=== PATIENT | female | born 1975 | race Caucasian/White ===

== ENCOUNTER → 2018-03-18 | Outpatient (CLI) | payer OTHER | END | disposition home or self-care (01) | LOC: C.LAB1850 16:25 | PROVIDERS: ATTEND Internal Medicine | DX: E03.9 Hypothyroidism, unspecified (principal) ==

== ENCOUNTER 2020-01-01 16:02 | Inpatient (IN) ==
[2020-01-01] MEDS ORDERED: SODIUM CHLORIDE 0.9% 250 ML IV PRN ×2 (16:43→21:47)
[2020-01-01 17:16] LABS: Prothrombin Time 10.7 Seconds (9.0-12.0)
[2020-01-01 17:32] LABS: Pregnancy Test, Serum Negative (Negative)
[2020-01-01] MEDS ORDERED: IOVERSOL 100ml IV PRN (17:56)
--- NOTE | 2020-01-01 18:10 | Emergency Department Note ---
Entered by Randell Franklin acting as a scribe for History of Present Illness General Chief complaint: Abnormal Labs/Diagnostic Testing Stated complaint: LOW RBC AND HEMOGLOBIN Time Seen by Provider: 01/01/20 16:10 Source: stonework supervisor (niece) Limitations: language barrier History of Present Illness Onset (ago): week(s) 1 Location: head Pain Consistency: + intermittent (right rib pain) Maximum Pain Intensity: 0 Quality: + other (tired-feeling ) Exacerbated By: + movement Associated symptoms: + chest pain and + other (lightheaded, feeling more tired, near-syncope, right sided rib pain, fast heart beat, heavy periods) The patient is a 44 year old female who presents to the Emergency Room with complaints of abnormal testing. The patient's niece is translating for the patient at her request. The niece states the patient's friend, Kassidy Davidson, checked the patient's blood today and noticed the patient had a low hemoglobin. The niece states the patient notes she has never been told her blood count was low. The niece notes the patient states she had pain under her ribs on the right sided that has been intermittent. The niece states the patient states she had heavy periods in the last two days. The niece states the patient states she felt lightheaded last week and felt like she was going to pass out. The niece states the patient states she has been more tired lately and gets out of breath with movement. The niece states the patient states she gets a racing heart beat and chest pain with movement. The niece states the patient states she feels fine right now. The niece states the patient denies having a history of bleeding, having black or bloody stools, having family history of bleeding, and having a previous blood transfusion. Pt was offered our translation device but preferred to use her family member. Home Medications Home Medications Medication Instructions Recorded Confirmed Type levothyroxine 88 mcg tablet 88 mcg PO QAM #90 tab 03/06/19 01/01/20 History pantoprazole 20 mg PO QAM 01/01/20 01/01/20 History ferrous gluconate 324 mg PO BID 30 Days #60 tab 01/02/20 Rx Allergies Allergy/AdvReac Type Severity Reaction Status Date / Time No Known Drug Allergies Allergy Verified 01/01/20 16:56 Past Med/Surg History Medical History Benign familial tremor (Acute) Breast cancer screening by mammogram (Acute) Cervical cancer screening (Acute) Diabetes mellitus screening (Acute) Encounter for screening for lipoid disorders (Acute) Neoplasm of uncertain behavior of skin (Acute) Subclinical hypothyroidism (Acute) Family History Other Family history non-contributory Social History Preferred Language: Icelandic Communication Tools: IPad 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 and A total of 10 systems reviewed and were otherwise negative Physical Exam Vital Signs Vital Signs - 24 hr 01/01/20 16:05 01/01/20 17:26 01/01/20 17:30 Temperature 36.3 C L Temperature Source Oral Pulse Rate 83 69 68 Pulse Rate from SpO2 Sensor 69 69 Pulse Rhythm Pulse Strength Respiratory Rate 18 30 H 16 Respiratory Effort / Characteristics Non-Labored Spontaneous Respiratory Depth Normal Respiratory Pattern Regular Blood Pressure 146/76 H 131/78 128/76 Blood Pressure Mean 99 85 91 Blood Pressure Position Sitting Pulse Oximetry 97 93 97 Oxygen Delivery Method Room Air Oxygen Flow Rate Sepsis Recent Fever Within 48 Hours No Sepsis New/Unexplained Change in Mental Status No Sepsis Action Taken by Nursing No Action Required 01/01/20 18:11 01/01/20 18:15 01/01/20 18:22 Temperature 36.5 C Temperature Source Oral Pulse Rate 72 71 69 Pulse Rate from SpO2 Sensor 71 72 Pulse Rhythm Regular Pulse Strength Normal Respiratory Rate 19 17 15 Respiratory Effort / Characteristics Respiratory Depth Respiratory Pattern Blood Pressure 136/83 138/81 136/83 Blood Pressure Mean 101 86 100 Blood Pressure Position Lying Pulse Oximetry 96 98 95 Oxygen Delivery Method Oxygen Flow Rate 0 Sepsis Recent Fever Within 48 Hours Sepsis New/Unexplained Change in Mental Status Sepsis Action Taken by Nursing 01/01/20 18:37 Temperature 36.7 C Temperature Source Oral Pulse Rate 75 Pulse Rate from SpO2 Sensor Pulse Rhythm Regular Pulse Strength Normal Respiratory Rate 22 Respiratory Effort / Characteristics Respiratory Depth Respiratory Pattern Blood Pressure 142/80 H Blood Pressure Mean 100 Blood Pressure Position Lying Pulse Oximetry 97 Oxygen Delivery Method Oxygen Flow Rate 0 Sepsis Recent Fever Within 48 Hours Sepsis New/Unexplained Change in Mental Status Sepsis Action Taken by Nursing GENERAL: alert, well appearing, well nourished, no distress, non-toxic. Pale EYE EXAM: normal conjunctiva, PERRL and EOM's grossly intact OROPHARYNX: no exudate, no erythema, lips, buccal mucosa, and tongue normal and mucous membranes are moist NECK: supple, no nuchal rigidity, no adenopathy, non-tender LUNGS: Clear to auscultation. Normal chest wall mechanics HEART: no murmurs, S1 normal and S2 normal ABDOMEN: abdomen soft, non-tender, normo-active bowel sounds, no masses, no rebound or guarding. BACK: Back is symmetrical on inspection and there is no deformity, no midline tenderness, no CVA tenderness. SKIN: no rashes and no bruising. Pale UPPER EXTREMITIES: upper extremities are grossly normal. FROM, nml pulses b/l. LOWER EXTREMITIES: No pitting edema. FROM, nml pulses b/l. NEURO EXAM: Normal sensorium, cranial nerves II-XII grossly intact, normal speech, no gross weakness of arms, no gross weakness of legs. Course Course 162: The patient was evaluated in room C3, and a complete history and physical examination were performed. 174: Blood consent form signed. Vital signs stable. Patient headed to CT. 1820: Patient is not sexually active. Patient has never had a gynecologic exam. Discussed CT results with patient and family at bedside. 1834: I discussed the patient's case with Dr. Lam. She will evaluate the patient for further management. 1849: Discussed with Dr. Padilla. If patient has heavy menstrual bl eeding or passage of clots, recommends progestin. This information was relayed to hospitalist also. Administered Medications Discontinued Medications Ioversol (Optiray 320 100ml) 95 ml IV ONCE PRN PRN Reason: Interaction Checking Stop: 01/05/20 17:55 Last Admin: 01/01/20 17:56 Dose: 95 ml Documented by: [id number] Levothyroxine Sodium (Synthroid) 88 mcg PO DAILYBB [facility] Stop: 02/01/20 06:29 Last Admin: 01/02/20 06:24 Dose: 88 mcg Documented by: [id number] Pantoprazole Sodium (Protonix) 40 mg PO QAM [facility] Stop: 02/01/20 08:59 Last Admin: 01/02/20 08:23 Dose: 40 mg Documented by: [id number] Critical Care Time Critical Care Time: Yes Total Critical Care Time: 48 I have personally spent 48 minutes of critical care time in the direct management of this patient. This includes bedside care, interpretation of diagnostic studies, and testing, discussion with consultants, patient, and family members, and other required patient management activities. This 48 minutes is in excess of all separately billable procedures. Medical Decision Making Differential Diagnosis Differential Diagnosis includes but is not limited to dehydration, stroke, anemia, hypoglycemia, hyponatremia, hypernatremia, urinary tract infection, pneumonia, bronchitis, sepsis, gastroenteritis, additional abdominal pathology, metabolic abnormalities and infections. Medical Records Attestation: I reviewed the patient's medical records. Home Medications Current Medication List: was personally reviewed by me Laboratory Data Attestation: I reviewed the patient's lab results. Result diagrams: 01/02/20 14:00 01/02/20 03:37 Lab Results 01/01/20 01/01/20 01/01/20 Range/Units 16:52 16:52 16:52 PT 10.7 (9.0-12.0) Seconds INR 1.0 (0.9-1.1) Troponin I 0.058 H* (0-0.045) ng/ml HCG, Qual (Negative) Blood Type O Positive Blood Type Recheck Antibody Screen NEGATIVE Crossmatch See Detail 01/01/20 01/01/20 Range/Units 16:52 17:10 PT (9.0-12.0) Seconds INR (0.9-1.1) Troponin I (0-0.045) ng/ml HCG, Qual Negative (Negative) Blood Type Blood Type Recheck O Positive Antibody Screen Crossmatch Imaging Data Radiologist's Impression: Radiology results as stated below per my review and the radiologist's interpretation: CT abd pelvis IV con only CT DOSE: 813.78 mGycm HISTORY: Pain abd pain, anemia TECHNIQUE: Multiaxial CT images of the abdomen and pelvis were performed following the use of intravenous contrast. A dose lowering technique was utilized adhering to the principles of ALARA. COMPARISON STUDY: None. FINDINGS: Lung bases are clear. Liver spleen and pancreas are unremarkable. A gallstone is present within the gallbladder lumen. Kidneys enhance uniformly the abdominal bowel pattern is nonobstructive. The bladder is markedly enlarged with evidence for multifocal fibroid involvement. Maximum dimension of the bladder transaxially is 15.0 x 10.0 cm. Bladder is moderately displaced and anterior fashion. The pelvic bowel pattern is nonobstructive. IMPRESSION: 1. Enlarged uterus demonstrating multifocal fibroid involvement. 2. Dimensions are 15.0 x 10.0 cm. 3. The remainder the study is unremarkable. ACT 112: Negative or not required by law. The above report was generated using voice recognition software. It may contain grammatical, syntax or spelling errors. Electronically signed by: Shane Tom M.D. 01/01/2020 6:08 PM ECG Data Attestation: I personally reviewed and interpreted this ECG as follows: Indication: + abdominal pain Rate (beats per minute): 70 Rhythm: + normal sinus ECG Intervals/blocks: + Normal QRS, + Normal QT, + Normal AR and + Normal QT-c ECG Entriken: + Normal ECG Findings: + Other (Bifasic appearing T wave in V2) Blood Pressure Blood Pressure Findings: Elevated blood pressure Blood Pressure Disposition: further management by hospitalist CAROLYNN Narrative Continuous Cardiac Monitoring: An order was placed for continuous cardiac monitoring. The monitor shows a rate of 72 with a normal sinus rhythm. Pt here with symptomatic anemia. No prior hx of anemia. No sx to suggest gi or gu source. Given mild abd pain, pt sent for CT which revealed fibroid uterus. Given heavier than normal menstrual bleeding, I feel this is likely the source. Given lack of prior sexual hx, I do not suspect PID or other acute sous chef pa thology. Possible now approaching menopause and fluctating hormonal levels are contributing to heavier bleeding in the presence of fibroids. Pt VS stable while at rest. Pt in agreement with plan for transfusion. I do not suspect acs despite elevatedt troponin. I feel this is likely due to demand from anemia. No ectopy or dysrhythmia noted on tele. Impression & Plan Anemia, Elevated troponin, Dyspnea, Fatigue, Menorrhagia Discharge Plan Visit Data *Final* Discharge Date/Time: 01/01/20 21:22 Chief Complaint: Abnormal Labs/Diagnostic Testing Stated Complaint: LOW RBC AND HEMOGLOBIN ED Provider: Suzette Ross Discharge Problem: Anemia, Elevated troponin, Dyspnea, Fatigue, Menorrhagia Patient Disposition: Admitted As Inpatient Discharge Instructions Interventions: ED Discharge Assessment Last Done: 01/01/20 21:22 Discharge Problem: Anemia Qualifiers: Anemia type: unspecified type Qualified Code(s): D64.9 - Anemia, unspecified Dyspnea Qualifiers: Dyspnea type: unspecified Qualified Code(s): R06.00 - Dyspnea, unspecified Fatigue Qualifiers: Fatigue type: unspecified Qualified Code(s): R53.83 - Other fatigue Menorrhagia Qualifiers: Menorrhagia type: with regular cycle Qualified Code(s): N92.0 - Excessive and frequent menstruation with regular cycle The scribe's documentation has been prepared under my direction and personally reviewed by me in its entirety. I confirm that the note above accurately reflects all work, treatment, procedures, and medical decision making performed by me.
--- NOTE | 2020-01-01 20:26 | History & Physical Report ---
Date of Service January 01, 2020 Assessment & Plan (1) Severe anemia: Admit to PCU on telemetry. Vital signs every 4 hours. Patient has menometrorrhagia and she chronically lost blood due to fibroid uterus and dysfunctional uterine bleeding. Patient is not on any kind of contraceptive pills. Patient refused progesterone stating that this will make her local fat. Patient accepted to be seen by INTERACTIVE MEDIA MARKETING STRATEGIST in the morning. Transvaginal sonogram pending. DVT prophylaxis SCDs and teds. Patient was started on 2 units of blood which she consented. Check H&H every 8 hours. Patient is still on her. Continue monitoring for blood loss measuring pads/number and weight. Patient is a full code. Present on Admission?: Yes (2) Elevated troponin: Appears to be due to demand ischemia. Patient's EKG is normal. I will continue trending down troponin x3 with EKG. TTE pending Present on Admission?: Yes (3) Dyspnea: Symptomatic due to severe anemia. Continue blood transfusion Present on Admission?: Yes (4) Menometrorrhagia: As the above. Patient referred to INTERACTIVE MEDIA MARKETING STRATEGIST. Refused progesterone. Present on Admission?: Yes (5) Fibroid uterus: This was discussed with patient. She will possibly need hysterectomy. Present on Admission?: Yes (6) Subclinical hypothyroidism: Elevated TSH but free T4 normal, continue home dose of levothyroxine 88 MCG's p.o. every morning. Present on Admission?: Yes History of Present Illness Chief Complaint: Menometrorrhagia and severe anemia Primary Care Provider: Rosemarie Whaley MD The patient is a 44 years old female with past medical history of subclinical hypothyroidism who was brought to the emergency room by her family since she does not speak any Citizen [place] with the complaint that patient is severely pale and short of breath in the past several days. Patient reports not being ever sexually active and not having ever pelvic exam. Patient reports that her menstrual.'s are heavy and frequent and they occur irregularly. Patient is at this point on her menstrual and she reports of her period being moderately heavy. Patient reports changing 3 soaked pads since this morning. Patient denies fever, chills, chest pain, shortness of breath, abdominal pain, frequency, urgency. Labs are reviewed: WBC is 5.32, hemoglobin 6.7, hematocrit 26.0, platelets 460, PT 10.7, INR 1, sodium 138, potassium 3.7, chloride 106, BUN 14, creatinine 0.57, GFR 111.2, hemoglobin A1c 5.3, calcium 9.3, iron 9, TIBC 586, ferritin 1.1, AST 6, ALT 16, troponin 0 0.058, total protein 8, albumin 4.1, globulin 3.9, triglycerides 35, cholesterol 129, LDL 62, VLDL 7, HDL 60, cholesterol 2, TSH 5.610, free T4 0.99 beta-hCG negative. CT abdomen and pelvis with IV contrast only shows enlarged uterus demonstrated focal fibroid involvement. Dimensions are 15 x 10 cm. The reminder of the study is unremarkable. Decision was made to admit patient to PCU on telemetry for severe symptomatic anemia most probably due to fibroid uterus and chronic DUB. Allergies Allergy/AdvReac Type Severity Reaction Status Date / Time No Known Drug Allergies Allergy Verified 01/01/20 16:56 Home Medications Home Medications Medication Instructions Recorded Confirmed Type levothyroxine 88 mcg tablet 88 mcg PO QAM #90 tab 03/06/19 01/01/20 History pantoprazole 20 mg PO QAM 01/01/20 01/01/20 History Past Med/Surg History Medical History Benign familial tremor (Acute) Breast cancer screening by mammogram (Acute) Cervical cancer screening (Acute) Diabetes mellitus screening (Acute) Encounter for screening for lipoid disorders (Acute) Neoplasm of uncertain behavior of skin (Acute) Subclinical hypothyroidism (Acute) Family History Other Family history non-contributory Social History Preferred Language: Citizen [place] Feels Safe at Home: Yes Smoking Status: Never smoker Review of Systems Review of Systems: All systems reviewed & are unremarkable except as noted in HPI & below Physical Exam Constitutional: WD/WN, vitals as above well developed and + obese Eyes: normal visual soto by confrontation Pale conjunctiva ENMT: external ear and nose normal, oropharynx normal Neck: trachea midline, no thyromegaly Respiratory: normal respiratory effort, lungs clear to auscultation Cardiovascular: RRR, no murmur, no edema Gastrointestinal (Abdomen): normal bowel sounds, soft, nontender, no hepatosplenomegaly Musculoskeletal: no cyanosis or clubbing, extremities motor strength 5/5 Skin: no rashes, warm and dry Neurologic: patellar DTR's 2+ bilat, sensation intact Psychiatric: A+Ox3, euthymic affect Lymphatic: no cervical or axillary lymphadenopathy Results & Data Vital Signs (Past 12 Hours) Vital Signs Temp Pulse Resp BP Pulse Ox 01/01/20 19:15 36.7 C 71 18 139/86 100 01/01/20 19:00 36.8 C 67 16 134/83 99 01/01/20 18:37 36.7 C 75 22 142/80 H 97 01/01/20 18:22 36.5 C 69 15 136/83 95 01/01/20 18:15 71 17 138/81 98 01/01/20 18:11 72 19 136/83 96 01/01/20 17:30 68 16 128/76 97 01/01/20 17:26 69 30 H 131/78 93 01/01/20 16:05 36.3 C L 83 18 146/76 H 97 Code Status & VTE Plan Code Status Full code VTE Prophylaxis Plan VTE Prophylaxis will be ordered: No PG Care Time/CCT Total # of Minutes Spent Total Time Spent with Patient: Total time spent is greater than 50% in coordination of care (as documented) at patient's floor/unit and/or counseling patient: Coding Level of Care Code 02221 Initial Inpt Care Lvl 3 Diagnoses Severe anemia D64.9 Elevated troponin R79.89 Dyspnea R06.00 Dyspnea type: unspecified Menometrorrhagia N92.1 Fibroid uterus D25.9 Subclinical hypothyroidism E03.9 (1) Dyspnea Dyspnea type: unspecified Qualified Code(s): R06.00 - Dyspnea, unspecified
[2020-01-01] MEDS ORDERED: ACETAMINOPHEN 325 MG TAB PO PRN (21:47)
[2020-01-01] MEDS ORDERED: ALUMINUM/MAGNESIUM SUSP 30 ML UDC PO PRN (21:47)
[2020-01-01] MEDS ORDERED: MAGNESIUM HYDROXIDE SUSP 30 ML UDC PO PRN (21:47)
[2020-01-01] MEDS ORDERED: POLYETHYLENE (MIRALAX) 17 GM PACK PO PRN (21:47)
[2020-01-01] MEDS ORDERED: ONDANSETRON INJ 2 MG/ML 2 ML VIAL IV PRN (21:47)
[2020-01-01 22:13] LABS: Mean Corpuscular Hgb Conc 26.9 g/dL (32-36); Mean Corpuscular Volume 59.5 fL (80-100); Mean Platelet Volume 8.5 fL (7.4-10.4); Platelet Count 384 K/uL (130-400); RDW Coefficient of Variation 21.5 % (11.5-14.5); RDW Standard Deviation 46.4 fL (36.4-46.3); Red Blood Count 4.37 M/uL (4.2-5.4)
[2020-01-01 22:44] LABS: Anisocytosis Present; Basophils # (auto) 0.04 K/uL (0-0.2); Basophils % (auto) 0.7 %; Eosinophils # (auto) 0.11 K/uL (0-0.5); Hypochromasia Present; Immature Granulocytes # (auto) 0.01 K/uL (0.00-0.02); Immature Granulocytes % (auto) 0.2 %; Lymphocytes # (auto) 1.55 K/uL (1.2-3.4); Lymphocytes % (auto) 27.7 %; Microcytosis Present; Monocytes # (auto) 0.47 K/uL (0.11-0.59); Monocytes % (auto) 8.4 %; Neutrophils # (auto) 3.42 K/uL (1.4-6.5); Tear Drop Cells 1+
--- NOTE | 2020-01-01 23:29 | Consultation Report ---
DATE OF ADMISSION: 01/01/2020 REASON FOR CONSULT: Heavy periods and fibroid uterus and anemia. HISTORY OF PRESENT ILLNESS: The patient is a 44-year-old G0, single/virgin Nauruan female who is being admitted by medicine for a severe anemia. She soeaks Nauruan and we have used lamps tester and inspector services for communication. She states her periods have been heavier for the last year. They still come regularly every month and last about 4-5 days. She gets heavy bleeding for 2 days and then it slows down. Her periods started last Sunday on 12/29/2019 and it was heavy for 2 days and now today it slowed down and it is almost gone. She uses 4 pads on the heavy days. Denies passing any clots. On other days, it is much plunket nurse. She denies any pain or cramping with her periods. She denies intermenstrual bleeding, spotting, pelvic pain, discharge or any CLINIC MGR problems. She has never been to a service station operator. She has never been sexually active. On the admission, she was found to have severe anemia with hemoglobin of 6. She was admitted for blood transfusion. During workup, a CT scan was done which showed enlarged fibroid uterus measuring 15 x 10 cm. Details of the fibroids are not notified. Ultrasound has not been done yet. The patient denies any history of fibroids nor any CLINIC MGR problems. She declined progestin therapy earlier offered by medical doctor. She does not seem like needing hormonal therapy since her period light and ending. She is willing to follow up regularly for a routine CLINIC MGR exams and Pap smears. I offered her a pelvic exam today, but she kind of hesitant, she never had exam and we do not have options of different sizes of speculum here. I offered her exam in the office where we have very small speculums for virgin patients. She preferred that and wants to follow up for that. I gave her our address and phone number. I will also contacted my office to follow up and scheduled with her. I recommended her to have a pelvic ultrasound today to visualize the fibroids better. She agrees with that. We discussed that the fibroid tumors are usually benign tumors of the uterus. We will talk about options after the ultrasound as we know more about the sizes and number of fibroids. PAST MEDICAL HISTORY: Hypothyroidism, benign familial tremor. GYNECOLOGIC HISTORY: She has never been sexually active. She was never been . She is G0. She has no history of abnormal Pap smears since she never had a Pap smear before. SOCIAL HISTORY: The patient denies smoking, alcohol or drug use. She is Nauruan speaking. She has a sister, niece and friend that she shared their numbers with us to communicate later for appointments. PHYSICAL EXAMINATION: VITAL SIGNS: Blood pressure is 133/77, pulse is 68, respirations in the 14, and O2 saturations 98% on room air. GENERAL: She is alert, oriented x3, not in acute distress. She denies any heavy bleeding. LABORATORY WORKUP: On admission H&H was 6.05/30, now it is 05/30. Her platelets are 384. Her urine test is negative. PT/INR are normal. IMAGING: She only had abdominal /pelvis CT scan which showed enlarged uterus with multifocal fibroids measuring 15 x [address] of [address] of abdomen and pelvis are normal. ASSESSMENT AND PLAN: The patient is a 44-year-old G0, single/virgin Nauruan speaking female. We used lamps tester and inspector services for communication. She reports history of heavy periods, which sounded like normal per her history. Fibroid tumors noted on CT scan, no history per patient. Fibroid tumors are usually benign muscular tumors of uterus which sometimes can cause heavy periods or pain. ' She does not have much symptoms of fibroids. I recommended her to have a pelvic ultrasound to look at her fibroids in terms of number and sizes and location and then we will discuss what to do in the office. She prefers a pelvic exam in the office where we can choose different size of the speculums. I gave our phone and address and my office will contact her for an appointment and follow up. Thank you for the consultation. JAVON
[2020-01-02 03:58] LABS: Hematocrit (blood only) 27.5 % (37-47); Hemoglobin 7.5 g/dL (12.0-16.0); Mean Corpuscular Hemoglobin 16.7 pg (25-34); Mean Corpuscular Hgb Conc 27.3 g/dL (32-36); Mean Corpuscular Volume 61.2 fL (80-100); Mean Platelet Volume 8.4 fL (7.4-10.4); Platelet Count 337 K/uL (130-400); RDW Coefficient of Variation 23.1 % (11.5-14.5); RDW Standard Deviation 51.2 fL (36.4-46.3); Red Blood Count 4.49 M/uL (4.2-5.4); White Blood Count 5.64 K/uL (4.8-10.8)
[2020-01-02 04:14] LABS: Albumin Level 3.5 gm/dl (3.4-5.0); BUN Creatinine Ratio 23.7 (10-20); Calcium 8.9 mg/dl (8.5-10.1); Creatinine Clr Calc Pharmacy 140.9 ml/min; Est GFR (African American) 129.6; Est GFR (Non-African American) 111.8; Potassium 3.4 mmol/L (3.5-5.1)
[2020-01-02 04:24] LABS: Anisocytosis Present; Basophils # (auto) 0.06 K/uL (0-0.2); Basophils % (auto) 1.1 %; Eosinophils # (auto) 0.14 K/uL (0-0.5); Eosinophils % (auto) 2.5 %; Hypochromasia Present; Immature Granulocytes # (auto) 0.01 K/uL (0.00-0.02); Immature Granulocytes % (auto) 0.2 %; Lymphocytes # (auto) 1.52 K/uL (1.2-3.4); Microcytosis Present; Monocytes # (auto) 0.58 K/uL (0.11-0.59); Monocytes % (auto) 10.3 %; Neutrophils # (auto) 3.33 K/uL (1.4-6.5); Neutrophils % (auto) 58.9 %
[2020-01-02 04:28] LABS: Bilirubin,Total 0.7 mg/dl (0.2-1); Globulin 3.5 gm/dl (2.5-4.0)
[2020-01-02 04:59] LABS: Troponin I 0.059 ng/ml (0-0.045)
[2020-01-02 06:19] LABS: Estimated Average Glucose 108 mg/dl; Hemoglobin A1C 5.4 % (4.5-5.6)
--- NOTE | 2020-01-02 06:28 | Ultrasound Report ---
US pelvic complete CLINICAL HISTORY: FIBROID UTERUS COMPARISON STUDY: CT same date FINDINGS: Limited transabdominal exam. Large fibroid uterus having overall dimensions of 17 x 11 x 10 cm. The ovaries are not well seen presumably secondary to overlying bowel. The endometrium is a not ident ified with certainty. IMPRESSION: Large fibroid type uterus measuring 17 x 11 x 10 cm. ACT 112: Negative or not required by law. The above report was generated using voice recognition software. It may contain grammatical, syntax or spelling errors. Electronically signed by: Shane Tom M.D. 01/02/2020 6:27 AM
[2020-01-02] MEDS ORDERED: LEVOTHYROXINE SODIUM 88 MCG TABLET PO SCH (06:30)
[2020-01-02] MEDS ORDERED: PANTOprazole 40 MG TAB PO SCH (09:00)
[2020-01-02 14:19] LABS: Hematocrit (blood only) 29.2 % (37-47); Hemoglobin 8.1 g/dL (12.0-16.0); Mean Corpuscular Hgb Conc 27.7 g/dL (32-36); Mean Corpuscular Volume 61.2 fL (80-100); Mean Platelet Volume 8.7 fL (7.4-10.4); Platelet Count 349 K/uL (130-400); RDW Coefficient of Variation 23.2 % (11.5-14.5); RDW Standard Deviation 51.4 fL (36.4-46.3); Red Blood Count 4.77 M/uL (4.2-5.4); White Blood Count 4.75 K/uL (4.8-10.8)
[2020-01-02 14:41] LABS: Anisocytosis Present; Basophils # (auto) 0.05 K/uL (0-0.2); Basophils % (auto) 1.1 %; Eosinophils # (auto) 0.13 K/uL (0-0.5); Eosinophils % (auto) 2.7 %; Hypochromasia Present; Immature Granulocytes # (auto) 0.01 K/uL (0.00-0.02); Immature Granulocytes % (auto) 0.2 %; Lymphocytes # (auto) 1.09 K/uL (1.2-3.4); Lymphocytes % (auto) 22.9 %; Monocytes # (auto) 0.66 K/uL (0.11-0.59); Monocytes % (auto) 13.9 %; Neutrophils # (auto) 2.81 K/uL (1.4-6.5); Neutrophils % (auto) 59.2 %; Poikilocytosis Present
--- NOTE | 2020-01-02 15:06 | Discharge Summary ---
Date of Service January 02, 2020 Admission HPI Per Admitting Provider The patient is a 44 years old female with past medical history of subclinical hypothyroidism who was brought to the emergency room by her family since she does not speak any Maltese with the complaint that patient is severely pale and short of breath in the past several days. Patient reports not being ever sexually active and not having ever pelvic exam. Patient reports that her menstrual.'s are heavy and frequent and they occur irregularly. Patient is at this point on her menstrual and she reports of her period being moderately heavy. Patient reports changing 3 soaked pads since this morning. Patient denies fever, chills, chest pain, shortness of breath, abdominal pain, frequency, urgency. Labs are reviewed: WBC is 5.32, hemoglobin 6.7, hematocrit 26.0, platelets 460, PT 10.7, INR 1, sodium 138, potassium 3.7, chloride 106, BUN 14, creatinine 0.57, GFR 111.2, hemoglobin A1c 5.3, calcium 9.3, iron 9, TIBC 586, ferritin 1.1, AST 6, ALT 16, troponin 0 0.058, total protein 8, albumin 4.1, globulin 3.9, triglycerides 35, cholesterol 129, LDL 62, VLDL 7, HDL 60, cholesterol 2, TSH 5.610, free T4 0.99 beta-hCG negative. CT abdomen and pelvis with IV contrast only shows enlarged uterus demonstrated focal fibroid involvement. Dimensions are 15 x 10 cm. The reminder of the study is unremarkable. Decision was made to admit patient to PCU on telemetry for severe symptomatic anemia most probably due to fibroid uterus and chronic DUB. Principal Diagnosis Symptomatic anemia, menometrorrhagia Discharge Exam Constitutional WD/WN, vitals as above well developed and + obese Eyes normal visual soto by confrontation ENMT external ear and nose normal, oropharynx normal Neck trachea midline, no thyromegaly Respiratory normal respiratory effort, lungs clear to auscultation Cardiovascular RRR, no murmur, no edema Gastrointestinal (Abdomen) normal bowel sounds, soft, nontender, no hepatosplenomegaly Musculoskeletal no cyanosis or clubbing, extremities motor strength 5/5 Skin no rashes, warm and dry Neurologic patellar DTR's 2+ bilat, sensation intact Psychiatric A+Ox3, euthymic affect Discharge Data Allergies Allergy/AdvReac Type Severity Reaction Status Date / Time No Known Drug Allergies Allergy Verified 01/01/20 16:56 Consultations 01/01/20 21:47 Consult Gynecology Routine Ordered Studies 01/01/20 16:43 CT abd pelvis IV con only Stat 01/01/20 21:52 US pelvic complete Routine Hospital Course (1) Severe anemia: Patient has menometrorrhagia and she chronically lost blood due to fibroid uterus and dysfunctional uterine bleeding. Pelvic US revealed fibroid uterus measuring 17x 11 x 10cm Patient is not on any kind of contraceptive pills, and refused progesterone stating that this will make her "fat" Patient was seen by [facility], and is willing to follow as outpatient. [facility] as they performed consult in hospital. Patient was transfused 2 units PRBC, which raised Hb from 6.7 to 8.1. Repeat H&H next week, will send to PCP. Recommend she follow with [facility] T[facility]ER first available appt, and PCP in 7-10 days. Discharged on iron supplementation BID with orange juice. (2) Elevated troponin: Appears to be due to demand ischemia. Patient's EKGs were normal, no symptoms of cardiac ischemia TTE revealed "borderline concentric LVH, nl LV systolic function, mild LA dilation, RV systolic pressure normal, IVC mildly dilated" (3) Dyspnea: Symptomatic due to severe anemia. Improved after blood transfusion (4) Menometrorrhagia: As the above. Patient referred to [facility]. Refused progesterone. (5) Fibroid uterus: This was discussed with patient. She will possibly need hysterectomy; follow with [facility] T[facility]ER as planned (6) Subclinical hypothyroidism: Elevated TSH but free T4 normal, continue home dose of levothyroxine 88 MCG's p.o. every morning. Recommend repeating TSH in 1 month Total Time Total Time Spent Total Time Spent (In Minutes): 30 Discharge Plan Discharge Items Patient Disposition: Home - Self-Care Reason For Visit: SEVERE ANEMIA Discharge Diagnosis: Menometrorrhagia Activity: Per Instructions section Lifting: Gradually increase as tolerated Lifting Comment: Would recommend holding off on lifting until your repeat labwork returns Exercise/Sports: Gradually increase as tolerated Non-emergency contact: Primary Care Provider Call non-emergency contact if: you have any medication questions and your symptoms worsen Follow-up/Referrals: Rosemarie Whaley MD [Primary Care Provider] - 01/08/20 9:30 am (Follow-up appt with BRENDON Anthony at Dr. Mckeon's office ) Satnam-Marita Taylor MD [Physician] - (First available or colleague first available. For your follow-up appt. with Dr. Hay the office will call you with an appt.) Diet: Regular Addtl Attending Provider Instructions: During this admission, you were evaluated for excessive blood loss, which caused symptoms of shortness of breath, weakness, being pale, etc. Your blood count was very low, which required us to transfuse blood into your system. Your body did respond appropriately to the blood, but you will need to recheck your lab values next week with your primary care doctor. We believe the cause of your irregular and excessive vaginal bleeding is a large, benign, uterine fibroid. You will need to follow up with Dr. Hay or a colleague in her office, as discussed, in a timely manner to discuss options to slow down/halt the bleeding process. She will also go over what a fibroid is and discuss why it causes bleeding and whether removing the fibroid surgically is an option for you. When you leave the hospital, we recommend you take an iron supplement, twice daily, WITH orange juice. We will send the prescription for this to your pharmacy. Please remember to get your labs checked next Sunday or Sunday to follow up on your blood count. The results will be sent to your primary care provider. Please follow up with your PCP or one of her colleagues in the next 7-10 days. Should your symptoms worsen, do not hesitate to return to the ER to be assessed. Pending Studies at Discharge: No Stand-Alone Forms: My [facility] [employer], Work/School Release (Inpt), Smoking Cessation Medications and DC Order Prescriptions: New ferrous gluconate 324 mg (38 mg iron) tablet 324 mg PO BID 30 Days Qty: 60 RF: 0 Continued levothyroxine 88 mcg tablet 88 mcg PO QAM Qty: 90 RF: 0 pantoprazole 20 mg tablet,delayed release (DR/EC) 20 mg PO QAM RF: 0 Discharge Orders: Discharge Order (Routine); Ordered 01/02/20 Ordered By: Erin Saldivar/Other Patient Handouts: Anemia, Fibroids Admission Data Admit Date/Time: 01/01/20 20:12 Attending Provider: Ray Sotelo Admit Provider: Hilda Lam Primary Care Provider: Rosemarie Whaley V. Other Providers: Marita Padilla Other Interventions: Discharge Summary Assessment (RN) Last Done: 01/02/20 15:55 DC Date/Time DO NOT enter until pt leaves facility: 01/02/20 17:35 Supervising Physician Co-Signing Physician Notes Also saw the patient with the resident physician and confirmed gao portion of the history and physical examination. Our examination was assisted using the interactive building energy retrofit technician via the [employer] iPad. We reviewed the lab work, imaging findings, and recommendations of gynecology. Her hemoglobin has improved and is stable; agree with iron supplementation and repeat CBC in 1 week. The patient understands the need to follow-up with gynecology; I suspect she will need an elective surgical procedure in the near future given its size and her symptomatic anemia. I agree with the impression and plan as documented in the resident's documentation
--- NOTE | 2020-01-02 15:21 | XCELERA ---
[id number] [id number]
--- NOTE | 2020-01-02 18:30 | Electrocardiogram Report ---
Test Reason : Blood Pressure : / mmHG Vent. Rate : 059 BPM Atrial Rate : 059 BPM P-R Int : 166 ms QRS Dur : 088 ms QT Int : 450 ms P-R-T Axes : 058 026 076 degrees QTc Int : 445 ms Sinus bradycardia Otherwise normal ECG When compared with ECG of 01-JAN-2020 17:24, (unconfirmed) No significant change was found Confirmed by Clemente Ordoñez ([id number]) on 01/02/2020 6:30:25 PM Referred By: REFERRED SELF Confirmed By:Shailesh Ordoñez
--- NOTE | 2020-01-02 18:39 | Electrocardiogram Report ---
Test Reason : Blood Pressure : / mmHG Vent. Rate : 070 BPM Atrial Rate : 070 BPM P-R Int : 162 ms QRS Dur : 086 ms QT Int : 422 ms P-R-T Axes : 037 006 053 degrees QTc Int : 455 ms Normal sinus rhythm Normal ECG No previous ECGs available Confirmed by Clemente Ordoñez ([id number]) on 01/02/2020 6:38:55 PM Referred By: REFERRED SELF Confirmed By:Shailesh Ordoñez
--- NOTE | 2020-01-05 11:30 | Coding Query ---
ANEMIA To promote full compliance with coding requirements relating to patient care, physician participation is requested in all cases of label coder uncertainty. Please assist us with the question(s) below: Coding Question(s): Please specify the known or suspected type of anemia by placing an "X" within the parenthesis (x). If other, please document type. Examples are: ( ) Acute blood loss anemia ( ) Acute Postoperative blood loss anemia ( ) Acute postoperative anemia due to dilutional fluids XChronic blood loss anemia ( ) Anemia of chronic disease ( ) Aplastic anemia ( ) Anemia due to renal disease ( ) Anemia in neoplastic disease ( ) Iron deficient anemia ( ) Anemia, unspecified or other ( ) Other: (please specify) ( ) Unable to determine Thank you Estefany ALEJANDRO
== END 2020-01-02 17:35 | disposition home or self-care (01) | DRG 760 ==
LOC: ED 16:02 → 2S 20:12 → SUATTDRO 20:12 → 2S 21:22